=== PATIENT | female | born 1965 | race American Indian/Alaskan Native ===

== ENCOUNTER 2024-05-24 23:45 | Emergency (ER) | payer SELFPAY ==
[2024-05-24 23:56] VITALS: BP 120/62
[2024-05-25 01:07] VITALS: BP 130/65; BMI 23.3
[2024-05-25 01:33] LABS: % Basophils 0.8 % (0-2); % Immature Granulocytes 0.2 % (0-0.5); % Monocytes 10.3 % (1.7-9.3); % Neutrophils 41.7 % (42.2-75.2); Absolute Eosinophils 0.2 10^3/uL (0-0.7); Absolute Lymphocytes 2.2 10^3/uL (1.2-3.4); Absolute Monocytes 0.5 10^3/uL (0.1-0.6); Absolute Neutrophils 2.1 10^3/uL (1.4-6.5); Hematocrit 35.7 % (37.0-47.0); Hemoglobin 12.3 g/dL (12.0-16.0); Mean Corp Hgb Conc. 34.5 g/dL (33.0-37.0); Mean Corpuscular Hgb 28.1 pg (27.0-31.0); Mean Corpuscular Volume 81.7 fL (81.0-99.0); Mean Platelet Volume 9.8 fL (7.4-10.4); Nucleated Red Blood Cells % 0 %; Platelet Count 256 10^3/uL (130-400); Red Blood Cell Count 4.37 10^6/uL (4.20-5.40); Red Cell Dist. Width 14.7 % (11.5-14.5)
[2024-05-25 01:48] LABS: ALT (SGPT) 19 U/L (0-35); AST (SGOT) 26 U/L (14-36); Albumin 3.9 g/dl (3.5-5.0); Alkaline Phosphatase 70 U/L (38-126); Blood Urea Nitrogen 12 mg/dl (7-17); Calcium 9.7 mg/dl (8.4-10.2); Carbon Dioxide 27 mmol/L (22-30); Chloride 106 mmol/L (98-107); Estimated Creatinine Clearance 64 ml/min; Glucose 95 mg/dl (70-99); Potassium 4.5 mmol/L (3.5-5.1); Sodium 139 mmol/L (135-145); Total Bilirubin 0.2 mg/dl (0.2-1.3); Total Protein 6.7 g/dl (6.3-8.2); eGFR > 60.00
[2024-05-25 02:00] VITALS: BP 118/62
--- NOTE | 2024-05-25 02:28 | ED.GENMED ---
History of Present Illness
<GREG Mixon (Lenka) - Last Filed: 05/25/24 04:12>
General
Chief Complaint: Abdominal Pain
Source: patient and applications chemist (son's friend)
Exam Limitations: other (language barrier)
Time Seen by Provider: 05/25/24 02:26
Nursing documentation reviewed up to this point in time: agreed with except (no difficulty walking)
History of Present Illness
History of Present Illness:
Pt is a 58 yo female with PMHx of hyperthyroidism, arthritis, and GERD who presents to the ED with concerns over intermittent mid-sternal chest pain x 3d. Per son's friend helping interpret and per patient, tonight, the pain was present at rest and
she was unable to sleep. It began about 30 minutes after eating fried and spicy food for dinner. She took esomeprazole and Tums with improvement in pain. Friend notes that oover the past 3d, the pt has been complaining of intermittent mid-sternal
chest pain, worse with activity such as walking up hills outside. The pain does not radiate and has been relieved with rest. She endorses 'heavy breathing' and chest palpitations during the painful episodes. She denies dyspnea, back pain, abdominal
pain, N/V, dizziness, lightheadedness. No current pain upon clinical exam.
Arthritis medications - deflazacort and methotrexate
Other medications - esomeprazole, alendronate, calcium
Patient visiting from [place] for the past 2-2.5 months.
Past History
<GREG Mixon (Lenka) - Last Filed: 05/25/24 04:12>
Past History
ED Past Medical History: GERD, Hyperthyroidism and Other (arthritis)
ED Past Surgical History: Gynecological (myomectomy)
Social History
Tobacco: Non-smoker
Alcohol: None
Drug: None
Living: with family
Family History
Family History: CAD (father, from [place])
Phy Exam
<ST Mixon (Lenka)TN - Last Filed: 05/25/24 04:12>
General Physical Exam
General Presentation: well appearing and no apparent distress
General age: appears stated age
General Skin: warm and dry
General Habitus: normal
General Mental: alert
General Hydration: appears well hydrated
Cardiovascular Exam
Cardiovascular Exam: regular rate/rhythm, no edema, no gallop, no murmur and other (mid-sternum with reproducible chest pain upon palpation)
Pulmonary Exam
Pulmonary Exam: lungs clear, no respiratory distress, no rales, no rhonchi and no wheezing
Gastrointestinal Exam
Gastrointestinal Exam: normal bowel sounds, non tender, soft and non distended
Neurological Exam
Neurological Exam: alert and oriented x3
Musculoskeletal Exam
Musculoskeletal Exam: other (reproducible tenderness to mid sternum upon palpation)
Skin Exam
Skin Exam: normal color and warm/dry
Psychiatric Exam
Psychiatric Exam: normal mood/affect
Course
<GREG Mixon (Lenka) - Last Filed: 05/25/24 04:12>
Orders/Labs/Results
Orders:
Orders
05/24/24 23:50
ECG [Electrocardiogram (*1)] Urgent
Reason for Study: Chest Pain
EKG- Treatment ONCE
05/25/24 01:22
CBC/With Diff [Complete Blood Count/With Diff] Urgent
CMP [Comprehensive Metabolic Panel] Urgent
Lipase Urgent
Comment: ADDED
05/25/24 02:10
Troponin I Urgent
05/25/24 03:39
Add On- LAB Urgent
Tests Added?: lipase
05/25/24 03:56
Electrocardiogram (*1) Urgent
Reason for Study: Abdominal Pain
EKG- Treatment ONCE
05/25/24 04:00
Mag Hydrox/Al Hydrox/Simeth [Maalox] 30 ml Phenobarb/Hyoscy/Atropine/Scop [] 10 ml PO NOW
CR Chest - 2 Views Urgent
Comment:
Reason For Exam: cp
05/25/24 04:05
Mag Hydrox/Al Hydrox/Simeth [Maalox] 30 ml .ROUTE .STK-MED ONE
Phenobarb/Hyoscy/Atropine/Scop [] 10 ml .ROUTE .STK-MED ONE
05/25/24 04:14
Troponin I Urgent
Abnormal Lab Results
05/25/24
01:22
Hct 35.7 L %
(37.0-47.0)
RDW 14.7 H %
(11.5-14.5)
Neutrophils % 41.7 L %
(42.2-75.2)
Monocytes % 10.3 H %
(1.7-9.3)
05/25/24 01:22
05/25/24 01:22
Vital Signs
Initial and Last Documented VS:
Initial Vital Signs
Temp Pulse Resp BP Pulse Ox
97.8 F 68 24 120/62 100
05/24/24 23:56 05/24/24 23:56 05/24/24 23:56 05/24/24 23:56 05/24/24 23:56
Last Documented Vital Signs
Temp Pulse Resp BP Pulse Ox
97.8 F 68 24 135/67 100
05/24/24 23:56 05/24/24 23:56 05/24/24 23:56 05/25/24 04:16 05/25/24 04:17
Jasvirlt;Jay Stinson, - Last Filed: 05/25/24 04:50>
Orders/Labs/Results
Orders:
Orders
05/24/24 23:50
ECG [Electrocardiogram (*1)] Urgent
Reason for Study: Chest Pain
EKG- Treatment ONCE
05/25/24 01:22
CBC/With Diff [Complete Blood Count/With Diff] Urgent
CMP [Comprehensive Metabolic Panel] Urgent
Lipase Urgent
Comment: ADDED
05/25/24 02:10
Troponin I Urgent
05/25/24 03:39
Add On- LAB Urgent
Tests Added?: lipase
05/25/24 03:56
Electrocardiogram (*1) Urgent
Reason for Study: Abdominal Pain
EKG- Treatment ONCE
05/25/24 04:00
Mag Hydrox/Al Hydrox/Simeth [Maalox] 30 ml Phenobarb/Hyoscy/Atropine/Scop [] 10 ml PO NOW
CR Chest - 2 Views Urgent
Comment:
Reason For Exam: cp
05/25/24 04:05
Mag Hydrox/Al Hydrox/Simeth [Maalox] 30 ml .ROUTE .STK-MED ONE
Phenobarb/Hyoscy/Atropine/Scop [] 10 ml .ROUTE .STK-MED ONE
05/25/24 04:14
Troponin I Urgent
Abnormal Lab Results
05/25/24
01:22
Hct 35.7 L %
(37.0-47.0)
RDW 14.7 H %
(11.5-14.5)
Neutrophils % 41.7 L %
(42.2-75.2)
Monocytes % 10.3 H %
(1.7-9.3)
05/25/24 01:22
05/25/24 01:22
Vital Signs
Initial and Last Documented VS:
Initial Vital Signs
Temp Pulse Resp BP Pulse Ox
97.8 F 68 24 120/62 100
05/24/24 23:56 05/24/24 23:56 05/24/24 23:56 05/24/24 23:56 05/24/24 23:56
Last Documented Vital Signs
Temp Pulse Resp BP Pulse Ox
97.8 F 68 24 135/67 100
05/24/24 23:56 05/24/24 23:56 05/24/24 23:56 05/25/24 04:16 05/25/24 04:17
<GREG Mixon (Lenka) - Last Filed: 05/25/24 04:12>
MDM/Problems Addressed
Differential Diagnosis Includes:
DDx: stable angina, GERD, acute [place]
Chest pain reproducible with mid-sternal chest pressure. No current chest pain on exam. Initial pain pt had tonight at 2100 was improved with esomeprazole and Tums.
EKG 05/24 2359 and 05/25 0404 - NSR
Initial troponin - negative
Lipase - pending
<GREG Mixon (Lenka) - Last Filed: 05/25/24 04:12>
*Critical Care Note
Total Time (30-74mins, 75-104mins- exclusive of procedures): Not Applicable
<Jay Stinson DO - Last Filed: 05/25/24 04:50>
*Radiology
Radiology exam reviewed: all reviewed NAD by ED Provider
*Pulse Oximetry
Patient hypoxic: no
ED Attending Note
<Jay Stinson DO - Last Filed: 05/25/24 04:50>
ED Attending Note
Patient seen and examined by attending physician: Yes
I performed the substantive portion of visit, reviewed & personally made and approve the management plan that is documented in note by myself or NEIDA.: Yes
ED Attending Note:
Pleasant 58-year-old female presents with intermittent midsternal chest pain that is been present for the last 3 days. Patient has had spicy foods for dinner. She has tried [id number] and prescription remedies with no improvement in the
pain. Patient states that her pain is exacerbated with movement and relieved with rest. Denies any radiation. Patient is visiting from [place]. She has not seen a core maker helper. Currently she is asymptomatic. Patient was seen in conjunction with
the PA student. I have reviewed and agree with the history and treatment plan presented. On my independent physical exam, patient is awake, alert, and oriented x3. She is in no acute distress. Heart is regular rate and rhythm. Lungs are clear
to auscultation bilateral without wheezes rales or rhonchi present. Abdomen is soft and nontender nondistended. No hepatosplenomegaly present.
EKG shows sinus rhythm rate of 68 with normal intervals, normal axis. No acute ischemia present. CO intervals 110 ms. Repeat EKG shows normal sinus rhythm rate of 65 with a normal CO interval of 116 ms. No evidence of acute ischemia present. No
obvious interval change noted.
-
Portions of this chart may have been created with voice recognition software.� Occasional wrong word or��sound alike� substitutions may have occurred due to the inherent limitations of voice recognition software.
Discharge Plan
Departure
Patient with high blood pressure during this ER visit?: Yes
Condition: Fair
Discharge Problem:
Chest pain
Instructions: Acid Reflux and GERD in Adults (DC), Chest Pain CBC Follow Up, BLOOD PRESSURE
Referrals:
NONE,* [Family Provider] -
[facility]- [facility] [Provider Group]
Activity Restrictions/Additional Instructions:
It was a pleasure meeting you and taking part in your care. We hope for your continued healing and wellness.
Please read discharge instructions in their entirety. However, they are for general education and may not describe your exact diagnosis at discharge. Information on your ER visit and medical conditions were discussed with you along with appropriate
follow up information...
If indicated, please take your medications as instructed and indicated on discharge paperwork.
Please schedule a follow up appointment as directed. Call to schedule an appointment
Please return to the emergency department with ANY change in, persisting, or worsening of symptoms. If any of your symptoms do not improve, or persist, or become more severe within 6-12 hours, please return to the emergency department for further
care.
Please return to the emergency department if you develop a headache, neck pain/stiffness, fever greater than 100.4F, chest pain, shortness of breath, persistent nausea, vomiting, slurred speech, difficulty walking, numbness/tingling, weakness, signs
of infection or any other symptoms that are worrisome to you.
If you have any questions or concerns please do not hesitate to call the Hospital at or E-mail me directly at [email or web address]
Interventions
Interventions:
*Risk Screen - Suicide Last Done: 05/24/24 23:56
*General Assessment Last Done: 05/25/24 01:08
*Neglect/Abuse Screening Last Done: 05/24/24 23:56
ED- Fall Risk Assessment Last Done: 05/25/24 01:08
*ED COVID-19 Vaccine History Last Done: 05/25/24 01:08
UX-[facility]-Nanrbhll[facility] Assessment Last Done: 05/25/24 01:08
Discharge Date and Time
Print Language: Alberto
[2024-05-25 02:41] LABS: Troponin I < 0.012 ng/ml
[2024-05-25 04:11] LABS: Lipase 205 U/L (23-300)
[2024-05-25] MEDS: MAALOX 30 PO (04:12)
[2024-05-25 04:16] VITALS: BP 135/67
[2024-05-25 05:05] LABS: Troponin I < 0.012 ng/ml
== END 2024-05-25 05:39 | disposition home or self-care (01) ==
LOC: EMR 23:45
PROVIDERS: Emergency Medicine; EMERGENCY PHYSICIAN Student in an Organized Health Care Education/Training Program
DX: R07.89 Other chest pain (principal); E05.90 Thyrotoxicosis, unspecified without thyrotoxic crisis or storm; M19.90 Unspecified osteoarthritis, unspecified site; K21.9 Gastro-esophageal reflux disease without esophagitis; Z82.49 Family history of ischemic heart disease and other diseases of the circulatory system
CPT/HCPCS: 99283; 71046; 80053; 83690; 84484; 85025; 93005